=== PATIENT | male | born 2000 | race Hispanic/Latino ===

== ENCOUNTER 2021-02-15 11:29 | Emergency (ER) | payer OTHER, SELFPAY ==
[2021-02-16 16:46] LABS: SARS-CoV-2 PCR by NAA Not Detected (NotDetected)
== END 2021-02-15 13:05 | disposition home or self-care (01) ==
LOC: NAV ERS 11:29
DX: B34.9 Viral infection, unspecified (principal); Z20.822 Contact with and (suspected) exposure to COVID-19
CPT/HCPCS: 87081; 87430; 99283; U0003; U0005